=== PATIENT | female | born 1985 | race African-American/Black ===

== ENCOUNTER 2018-06-14 11:04 | Day surgery (SDC) | payer OTHER ==
[~2018-06-14] VITALS: Ht 175.3 cm; Wt 103.0 kg
[2018-06-14] VITALS (15 sets, daily range): BP systolic 72–125; BP diastolic 57–87; PULSE 61–89; RESP 15–27; Ht 175.3 cm; Wt 103.0 kg
--- NOTE | 2018-06-14 13:41 | QN ---
Documentation Comment 32 yo with Missed @5wks GA PMH denies PSH Denies Allergy NKDA PE VS stable Gen NAD Abd soft NT ND Genitalia No blood at perineum --->D&C&Suction discussed Risks and benefits,alternatives and risk and benefits of Alternatives discussed ANGELIC TERAN M.D. Jun 14, 2018 13:41
--- NOTE | 2018-06-14 14:08 | PREAC ---
Date/Time of Note Date/Time of Note DATE: 06/14/18 TIME: 14:06 Anesthesia Eval and Record Evaluation Time Pre-Procedure Interview DATE: 06/14/18 TIME: 14:06 Age 32 Sex female NPO: 8 hrs Preoperative diagnosis Abnormal bleeding Planned procedure D&C Past Medical History Past Medical History: Includes GI: Morbid obesity Surgery & Anesthesia Issues No known issue Meds Anticoagulation: No Beta Pernell within 24 hr: No Reason Beta Pernell not given: Pt. not on B-Pernell No Active Prescriptions or Reported Meds Meds reviewed: Yes Allergies Coded Allergies: Sulfa (Sulfonamide Antibiotics) (Verified Allergy, Severe, ITCHING, 06/14/18) PER PT Allergies Reviewed: Yes Labs/Studies Labs Reviewed: Reviewed by anesthesiologist test: Negative Studies: ECG Pre-procedure Exam Last vitals Vital Signs Date Temp Pulse Resp B/P (MAP) Pulse Ox O2 O2 Flow FiO2 Time Delivery Rate 06/14/18 97.5 67 16 125/87 97 12:32 (100) Airway: Adequate mouth opening, Adequate thyromental dist Mallampati: Mallampati II Teeth: Normal Lung: Normal Heart: Normal ASA Physical Status ASA physical status: 2 Emergency: None Planned Anesthetic General/MAC: LMA Planned Pain Management Parenteral pain med Pre-operative Attestations Prior to commencing anesthesia and surgery, the patient was re-evaluated, there was verification of: *The patient's identity *The results of appropriate recent lab work and preoperative vital signs *The above evaluation not changing prior to induction *Anesthetic plan, risk benefits, alternative and complications discussed with patient/family; questions answered; patient/family understands, accepts and wishes to proceed. MANJINDER DE JESUS MD Jun 14, 2018 14:08
[2018-06-14] MEDS ORDERED: MIDAZOLAM 1 MG/ML 2 ML INJ ONE (14:09)
[2018-06-14] MEDS ORDERED: FENTAnyl 50 MCG/ML VIAL ONE (14:10)
[2018-06-14] MEDS ORDERED: ONDANSETRON 4 MG INJ ONE (14:34)
[2018-06-14] MEDS ORDERED: PROPOFOL 20 ML ONE (14:34)
[2018-06-14] MEDS ORDERED: CEFAZOLIN 1 GM INJ ONE (14:34)
[2018-06-14] MEDS ORDERED: LIDOCAINE 2% (SDV) 5 ML INJ ONE (14:34)
--- NOTE | 2018-06-14 14:41 | OPPN ---
Date/Time of Note Date/Time of Note DATE: 06/14/18 TIME: 14:40 Operative Report Preoperative Diagnosis Missed at 5 weeks Postoperative Diagnosis same Operation/Procedure Performed D&C&Suction Surgeon see signature line fws faculty assistant none Anesthesia: general Estimated blood loss: minimal Transfusion Required none Specimen POC Grafts/Implants none Complications none ANGELIC TERAN M.D. Jun 14, 2018 14:41
--- NOTE | 2018-06-14 14:57 | PAC ---
Date/Time of Note Date/Time of Note DATE: 06/14/18 TIME: 14:57 Post-Anesthesia Notes Post-Anesthesia Note Last documented vital signs Vital Signs Date Temp Pulse Resp B/P (MAP) Pulse Ox O2 O2 Flow FiO2 Time Delivery Rate 06/14/18 97.5 67 16 125/87 97 12:32 (100) Activity: WNL Respiratory function: WNL Cardiovascular function: WNL Mental status: Baseline Pain reasonably controlled: Yes Hydration appropriate: Yes Nausea/Vomiting absent: Yes Comments BP:120/65, P:66, Spo2:100%, T:98,9 MANJINDER DE JESUS MD Jun 14, 2018 14:57
[2018-06-14] MEDS ORDERED: FENTAnyl 50 MCG/ML VIAL IV PRN (15:00)
[2018-06-14] MEDS ORDERED: ONDANSETRON 4 MG INJ IV PRN (15:00)
[2018-06-15] MEDS ORDERED: INFLUENZA VIRUS VACCINE 0.5 ML (DISPENSING) IM* ONE (09:00)
--- NOTE | 2018-06-15 13:23 | OPR ---
DATE OF OPERATION: 06/14/2018 PREOPERATIVE DIAGNOSIS: Missed at 5 to 6 weeks' gestational age. POSTOPERATIVE DIAGNOSIS: Missed at 5 to 6 weeks' gestational age. PROCEDURE: D and C and suction. ATTENDING SURGEON: Juan Caldwell MD ANESTHESIOLOGIST: Roberto Carlos Ortiz MD TYPE OF ANESTHESIA: General. COMPLICATIONS: None. ESTIMATED BLOOD LOSS: Less than 20 mL. TECHNIQUE: The patient was taken to the operating room where general anesthesia was found to be adeq uate. The patient was placed in dorsal lithotomy position. After prep and drape, a weighted speculu m was placed inside the vaginal vault. Anterior lip of the cervix was grasped by single-tooth tenacu lum. Cervix was dilated by Contreras dilators. Suction size 7 was inserted. Intrauterine cavity was franco ctioned. Sharp curettage of endometrial cavity was done. Instruments were removed. Hemostasis was achieved. The patient tolerated the procedure well and was transferred to recovery room in stable co ndition. There was no complication regarding this surgery. Dictated By: JUAN CHAKRABORTY/NTS Conf#: [id number] DID#: [id number]
--- NOTE | 2018-06-15 13:28 | PREOPHP ---
DATE OF ADMISSION: 06/14/2018 HISTORY OF PRESENT ILLNESS: This is a 32-year-old with diagnosis of missed at around 4 to 5 weeks' gestational age, scheduled for D and C and suction. PAST MEDICAL HISTORY: Denies. PAST SURGICAL HISTORY: Denies. ALLERGIES: 1. PENICILLIN. 2. SULFA. PHYSICAL EXAMINATION: VITAL SIGNS: Stable. GENERAL: Normal. ABDOMEN: Not tender, not distended. GENITAL: There was no blood in the vaginal vault. ASSESSMENT AND PLAN: A 32-year-old at 4 to 5 weeks gestational age with diagnosis of missed . The patient is scheduled for D and C and suction. Risks and benefits of procedure were discussed. Alternatives were discussed. Risks and benefits of alternatives were discussed. The patient nino d the consent and was taken to the operating room. Dictated By: ANGELIC CHAKRABORTY/NATALIE Conf#: [id number] DID#: [id number]
== END 2018-06-14 17:05 | disposition home or self-care (01) ==
LOC: SDS 11:04
PROVIDERS: ATTEND Obstetrics & Gynecology
DX: O02.1 Missed abortion (principal)
CPT/HCPCS: 59820; 88305; J0690; J2250; J2405; J3010; Z7512; Z7610; 90686